=== PATIENT | female | born 1970 | race Two or more races ===

== ENCOUNTER 2021-12-14 12:35 | Outpatient (CLI) | payer OTHER | END 2021-12-14 12:36 | disposition home or self-care (01) | LOC: NUCLEAR 12:35 | PROVIDERS: ATTEND Internal Medicine Sports Medicine | DX: C73 Malignant neoplasm of thyroid gland (principal); E89.0 Postprocedural hypothyroidism ==

== ENCOUNTER 2021-12-18 12:26 | Outpatient (CLI) | payer OTHER | END 2021-12-18 12:27 | disposition home or self-care (01) | LOC: NUCLEAR 12:26 | PROVIDERS: ATTEND Internal Medicine Sports Medicine | DX: C73 Malignant neoplasm of thyroid gland (principal); E89.0 Postprocedural hypothyroidism | CPT/HCPCS: 78018; 78020; A9530 ==

== ENCOUNTER 2023-04-05 11:41 | Outpatient (CLI) | payer OTHER | END 2023-04-05 11:48 | disposition home or self-care (01) | LOC: NUCLEAR 11:41 | PROVIDERS: ATTEND Internal Medicine Sports Medicine | DX: C73 Malignant neoplasm of thyroid gland (principal) ==